=== PATIENT | male | born 1985 | race Caucasian/White ===

== ENCOUNTER 2018-12-21 17:43 | Emergency (ER) | payer SELFPAY ==
[~2018-12-21] VITALS: Ht 170.2 cm; Wt 89.9 kg
[2018-12-21 17:45] VITALS: BP 140/90
[2018-12-21] MEDS ORDERED: DIPH,PERTUSS(ACELL),TET VAC/PF 0.5 ML IM-VACC ONE ×2 (18:00→18:02)
[2018-12-21] MEDS ORDERED: LIDOCAINE-MPF 1%, 5ML INFIL ONE (18:00)
[2018-12-21] MEDS ORDERED: LIDOCAINE-MPF 1%, 5ML ONE (18:02)
[2018-12-21] MEDS ORDERED: BACITRACIN ZINC OINT 500U/GM, 0.9 GM ONE (18:02)
--- NOTE | 2018-12-21 18:07 | NUR ---
PT REFUSING TETANUS, STATES HE'S UTD.
== END 2018-12-21 19:12 | disposition home or self-care (01) ==
LOC: ED 19:00
DX: S61.411A Laceration without foreign body of right hand, initial encounter (principal); Z88.0 Allergy status to penicillin; X58.XXXA Exposure to other specified factors, initial encounter; Y93.89 Activity, other specified; Y92.009 Unspecified place in unspecified non-institutional (private) residence as the place of occurrence of the external cause; Y99.8 Other external cause status
CPT/HCPCS: 12041; 99284